=== PATIENT | male | born 1935 | race African-American/Black ===

== ENCOUNTER 2017-06-16 12:47 | Emergency (ER) | payer MEDICARE, MEDICAID ==
[~2017-06-16] VITALS: Ht 185.4 cm; Wt 97.0 kg
[2017-06-16] MEDS ORDERED: METF500T4 PO (13:05)
[2017-06-16] MEDS ORDERED: BENA40TA3 PO (13:05)
[2017-06-16] MEDS ORDERED: TERA2CAP4 PO (13:05)
[2017-06-16] MEDS ORDERED: BICA50TA2 PO (13:05)
[2017-06-16 14:40] LABS: BASOPHILS % 0.5 % (0.0-2.0); EOSINOPHILS % 2.5 % (0.0-5.0); HEMATOCRIT. 33.2 % (42.0-52.0); LYMPHOCYTES % 19.4 % (20.0-50.0); MEAN CORPUSCULAR HEMOGLOBIN 28.9 pg (28.0-32.0); MEAN CORPUSCULAR VOLUME 87.3 fL (80.0-94.0); MEAN PLATELET VOLUME 6.9 fl (7.4-10.4); MONOCYTES % 10.2 % (2.0-8.0); NEUTROPHILS % 67.4 % (40.0-76.0); PLATELET 187 x1000/uL (130-400); RED BLOOD CELL COUNT 3.81 mill/uL (4.7-6.1); RED CELL DISTRIBUTION WIDTH 14.2 % (11.6-14.6)
[2017-06-16 14:41] LABS: CARBON DIOXIDE 28 mEq/L (21-32); CHLORIDE 105 mEq/L (98-107)
[2017-06-16 14:46] LABS: INR 1.1
[2017-06-16] MEDS ORDERED: SODIUM CHLORIDE 0.9% 500 ML IV ONE (15:18)
[2017-06-16 17:41] VITALS: BP 124/68
== END 2017-06-16 18:31 | disposition home or self-care (01) ==
LOC: ER 14:07
DX: E86.0 Dehydration (principal); T67.5XXA Heat exhaustion, unspecified, initial encounter; Z88.8 Allergy status to other drugs, medicaments and biological substances; I10 Essential (primary) hypertension; E11.9 Type 2 diabetes mellitus without complications; Z87.891 Personal history of nicotine dependence
CPT/HCPCS: 36415; 71010; 80053; 85025; 85610; 93005; 99285; J7030

== ENCOUNTER 2017-06-19 01:47 | Emergency (ER) | payer MEDICARE, MEDICAID ==
[~2017-06-19] VITALS: Ht 185.4 cm; Wt 97.0 kg
[~2017-06-19 01:47] MED LIST: BENA40TA3 PO; BICA50TA2 PO; METF500T4 PO; TERA2CAP4 PO
[2017-06-19] MEDS ORDERED: ACETAMINOPHEN 325MG TABLET PO ONE (02:45)
[2017-06-19] MEDS ORDERED: TRAMADOL 50MG TABLET PO ONE (04:30)
[2017-06-19 06:30] VITALS: BP 129/73
== END 2017-06-19 06:48 | disposition home or self-care (01) ==
LOC: ER 01:47
DX: S83.92XA Sprain of unspecified site of left knee, initial encounter (principal); S73.102A Unspecified sprain of left hip, initial encounter; E11.9 Type 2 diabetes mellitus without complications; I10 Essential (primary) hypertension; M19.90 Unspecified osteoarthritis, unspecified site; Z85.46 Personal history of malignant neoplasm of prostate; Z88.8 Allergy status to other drugs, medicaments and biological substances; Z90.79 Acquired absence of other genital organ(s); Z98.890 Other specified postprocedural states; X58.XXXA Exposure to other specified factors, initial encounter; Y93.89 Activity, other specified; Y92.098 Other place in other non-institutional residence as the place of occurrence of the external cause
CPT/HCPCS: 73502; 73562; 99284